=== PATIENT | male | born 1955 | race African-American/Black ===

== ENCOUNTER 2019-04-02 08:41 | Inpatient (IN) | payer BC, OTHER ==
[~2019-04-02] VITALS: Ht 175.3 cm; Wt 95.1 kg
[2019-04-02] VITALS (12 sets, daily range): BP systolic 119–167; BP diastolic 64–86
[~2019-04-02 08:41] MED LIST: ASPI-1393 PO; CRES10 PO; LISI10TA5 PO; METO1TAB26 PO; PRAV80TA21 PO
[2019-04-02] MEDS ORDERED: METO100T16 PO (09:10)
[2019-04-02] MEDS ORDERED: AMLO10TA4 MT (09:10)
[2019-04-02] MEDS ORDERED: IODIXANOL 320MG/ML 100 ML BOTTLE IV ONE ×2 (09:56→10:47)
[2019-04-02] MEDS ORDERED: LIDOCAINE HCL 1% 20ML VIAL (Pyxis) INJ ONE (09:56)
[2019-04-02] MEDS ORDERED: FENTANYL CITRATE/PF 50MCG/ML 2ML VIAL ONE (10:09)
[2019-04-02] MEDS ORDERED: MIDAZOLAM HCL 2 MG/2 ML VIAL ONE (10:09)
[2019-04-02] MEDS ORDERED: IOHEXOL-300 100 ML BOTTLE ONE (10:45)
[2019-04-02] MEDS ORDERED: CLOPIDOGREL 75MG TABLET ONE (11:40)
[2019-04-02] MEDS ORDERED: ASPIRIN 325MG EC TABLET PO ONE (11:41)
[2019-04-02] MEDS ORDERED: ONDANSETRON HCL 4MG/2ML INJ IV PRN (12:00)
[2019-04-02] MEDS ORDERED: ACETAMINOPHEN 325MG TABLET PO PRN (12:00)
[2019-04-02] MEDS ORDERED: ATROPINE SULFATE 1MG/10ML SYR IV PRN (12:00)
[2019-04-02] MEDS ORDERED: NICARDIPINE 100MCG/ML 10ML VIAL (CATH LAB) IV ONE (13:58)
[2019-04-02] MEDS ORDERED: HEPARIN SODIUM 1,000 UNIT/1ML VIAL IV ONE (13:58)
[2019-04-02] MEDS ORDERED: NITROGLYCERIN 50MCG/ML 10ML VIAL (CATH LAB) IV ONE (13:58)
[2019-04-02] MEDS ORDERED: ZOLPIDEM TARTRATE 5MG TABLET PO PRN (21:00)
[2019-04-03] VITALS: BP 124/66
[2019-04-03 02:00] VITALS: BP 111/70
[2019-04-03 04:00] VITALS: BP 123/67
[2019-04-03 06:00] VITALS: BP 149/71
[2019-04-03 07:53] LABS: BASOPHILS % 0.8 % (0.0-2.0); EOSINOPHILS % 7.6 % (0.0-5.0); HEMATOCRIT. 38.3 % (42.0-52.0); HEMOGLOBIN. 13.2 g/dL (14.0-18.0); LYMPHOCYTES % 28.5 % (20.0-50.0); MEAN CORPUSCULAR HEMOGLOBIN 30.5 pg (28.0-32.0); MEAN CORPUSCULAR VOLUME 88.7 fL (80.0-94.0); MEAN PLATELET VOLUME 8.6 fl (7.4-10.4); NEUTROPHILS % 55.1 % (40.0-76.0); PLATELET 219 x1000/uL (130-400); RED BLOOD CELL COUNT 4.32 mill/uL (4.7-6.1); RED CELL DISTRIBUTION WIDTH 13.3 % (11.6-14.6)
[2019-04-03 08:00] VITALS: BP 161/84
[2019-04-03 08:33] VITALS: BP 161/83
[2019-04-03 08:58] LABS: CHLORIDE 106 mEq/L (98-107)
[2019-04-03] MEDS ORDERED: CLOPIDOGREL 75MG TABLET PO SCH (09:00)
[2019-04-03] MEDS ORDERED: ASPIRIN 325MG TABLET PO SCH (09:00)
== END 2019-04-03 08:00 | disposition home or self-care (01) | DRG 247 ==
LOC: CCL 08:41 → 3WST 08:42
PROVIDERS: ADMIT Specialist; ATTEND Specialist
PROC: 4A023N7 Measurement of Cardiac Sampling and Pressure, Left Heart, Percutaneous Approach (ICD-10-PCS; principal; 2019-04-03)
PROC: 027035Z Dilation of Coronary Artery, One Artery with Two Drug-eluting Intraluminal Devices, Percutaneous Approach (ICD-10-PCS; 2019-04-03)
PROC: B2111ZZ Fluoroscopy of Multiple Coronary Arteries using Low Osmolar Contrast (ICD-10-PCS; 2019-04-03)
PROC: B2151ZZ Fluoroscopy of Left Heart using Low Osmolar Contrast (ICD-10-PCS; 2019-04-03)
DX: I25.110 Atherosclerotic heart disease of native coronary artery with unstable angina pectoris (principal); E78.5 Hyperlipidemia, unspecified; I10 Essential (primary) hypertension; N40.0 Benign prostatic hyperplasia without lower urinary tract symptoms; I73.9 Peripheral vascular disease, unspecified; N28.9 Disorder of kidney and ureter, unspecified; Z79.82 Long term (current) use of aspirin; Z95.5 Presence of coronary angioplasty implant and graft; Z79.02 Long term (current) use of antithrombotics/antiplatelets
CPT/HCPCS: 36415; 80048; 85347; 92928; 92978; 93005; 93458; 93571; C1725; C1753; C1769; C1874; C1887; C1893; J1644; J2250; J3010; J3490; Q9967

== ENCOUNTER 2019-07-02 06:39 | Day surgery (SDC) | payer OTHER ==
[~2019-07-02] VITALS: Ht 175.3 cm; Wt 83.9 kg
[~2019-07-02 06:39] MED LIST changes: +AMLO10TA4 MT; -CRES10 PO; +METO100T16 PO; -METO1TAB26 PO
[2019-07-02] MEDS ORDERED: IODIXANOL 320MG/ML 100 ML BOTTLE IV ONE (07:31)
[2019-07-02] MEDS ORDERED: EVOL140P SQ (08:45)
[2019-07-02] MEDS ORDERED: ASPI-986 MT (08:45)
[2019-07-02] MEDS ORDERED: METF-414 MT (08:45)
[2019-07-02] MEDS ORDERED: CLOP75TA4 MT (08:45)
[2019-07-02] MEDS ORDERED: MIDAZOLAM HCL 2 MG/2 ML VIAL ONE (08:52)
[2019-07-02] MEDS ORDERED: FENTANYL CITRATE/PF 50MCG/ML 2ML VIAL ONE (08:53)
[2019-07-02] MEDS ORDERED: LIDOCAINE HCL 1% 20ML VIAL (Pyxis) INJ ONE (08:53)
[2019-07-02] MEDS ORDERED: IOHEXOL-300 100 ML BOTTLE ONE (08:57)
[2019-07-02] MEDS ORDERED: HEPARIN SODIUM 1,000 UNIT/1ML VIAL IV ONE (09:12)
[2019-07-02] MEDS ORDERED: NITROGLYCERIN 50MCG/ML 10ML VIAL (CATH LAB) IV ONE (09:12)
[2019-07-02] MEDS ORDERED: ACETAMINOPHEN 325MG TABLET PO PRN (16:00)
[2019-07-02] MEDS ORDERED: ACETAMINOPHEN 325MG TABLET ONE (16:00)
== END 2019-07-02 16:15 | disposition home or self-care (01) ==
LOC: CCL 06:39
PROVIDERS: ATTEND Specialist
DX: I70.211 Atherosclerosis of native arteries of extremities with intermittent claudication, right leg (principal); E78.5 Hyperlipidemia, unspecified; I10 Essential (primary) hypertension; I25.10 Atherosclerotic heart disease of native coronary artery without angina pectoris; N40.0 Benign prostatic hyperplasia without lower urinary tract symptoms; Z79.02 Long term (current) use of antithrombotics/antiplatelets; Z79.82 Long term (current) use of aspirin; Z79.899 Other long term (current) drug therapy; Z88.8 Allergy status to other drugs, medicaments and biological substances; Z95.5 Presence of coronary angioplasty implant and graft
CPT/HCPCS: 37228; 75710; 82962; 85347; 99152; 99153; C1725; C1760; C1769; C1887; C1893; C1894; J1644; J2250; J3010; J3490; Q9967; G0500

== ENCOUNTER 2021-09-02 09:12 | Emergency (ER) | payer MEDICARE, OTHER ==
[~2021-09-02] VITALS: Ht 175.3 cm; Wt 75.0 kg
[~2021-09-02 09:12] MED LIST changes: -ASPI-1393 PO; +ASPI-986 MT; +CLOP-31 MT; +EVOL140P3 SQ; +LISI10TA26 PO; -LISI10TA5 PO; +METF-414 MT
[2021-09-02] MEDS ORDERED: ONDANSETRON HCL 4MG/2ML INJ IV STA (09:21)
[2021-09-02] MEDS ORDERED: SODIUM CHLORIDE 0.9% 1,000 ML IV ONE (09:30)
[2021-09-02 09:34] LABS: BASOPHILS % 0.9 % (0.0-2.0); EOSINOPHILS % 7.2 % (0.0-5.0); HEMATOCRIT. 36.1 % (42.0-52.0); HEMOGLOBIN. 11.9 g/dL (14.0-18.0); LYMPHOCYTES % 33.5 % (20.0-50.0); MEAN CORPUSCULAR HEMOGLOBIN 29.4 pg (28.0-32.0); MONOCYTES % 11.3 % (2.0-8.0); NEUTROPHILS % 47.1 % (40.0-76.0); PLATELET 260 x1000/uL (130-400); RED BLOOD CELL COUNT 4.06 mill/uL (4.7-6.1); RED CELL DISTRIBUTION WIDTH 13.5 % (11.6-14.6)
[2021-09-02 09:39] LABS: PROTHROMBIN TIME 10.3 sec (9.6-11.0)
[2021-09-02 09:40] LABS: CHLORIDE 107 mEq/L (98-107)
[2021-09-02 10:30] VITALS: BP 133/70
[2021-09-14] MEDS ORDERED: ASPI-1406 MT (13:25)
== END 2021-09-02 10:46 | disposition home or self-care (01) ==
LOC: ER 09:12
DX: R55 Syncope and collapse (principal); N17.9 Acute kidney failure, unspecified; I25.10 Atherosclerotic heart disease of native coronary artery without angina pectoris; E11.9 Type 2 diabetes mellitus without complications; I10 Essential (primary) hypertension; Z79.82 Long term (current) use of aspirin
CPT/HCPCS: 36415; 80053; 83880; 84484; 85025; 85610; 93005; 96374; 99283; J2405; J7030

== ENCOUNTER → 2021-09-14 | Day surgery (SDC) | payer MEDICARE, OTHER ==
[~2021-09-14] VITALS: Ht 175.3 cm; Wt 83.0 kg
[~2021-09-14] MED LIST changes: +ASPI-1406 MT; +ATROPINE SULFATE 1MG/10ML SYR IV PRN; +FENTANYL CITRATE/PF 50MCG/ML 2ML VIAL ONE; +HEPARIN 1000 UNITS/ML 10ML ONE; +IODIXANOL 320MG/ML 100 ML BOTTLE IV ONE; +LIDOCAINE HCL 1% 10 MG/ML 10ML VIAL ONE; +MIDAZOLAM HCL 2 MG/2 ML VIAL ONE; +NICARDIPINE 100MCG/ML 10ML VIAL (CATH LAB) IV ONE; +NITROGLYCERIN 50MCG/ML 10ML VIAL (CATH LAB) IV ONE; +ONDANSETRON HCL 4MG/2ML INJ IV PRN
== END | disposition home or self-care (01) ==
LOC: CCL 12:16
PROVIDERS: ATTEND Specialist
DX: I25.10 Atherosclerotic heart disease of native coronary artery without angina pectoris (principal); I35.0 Nonrheumatic aortic (valve) stenosis; I10 Essential (primary) hypertension; E11.9 Type 2 diabetes mellitus without complications; E78.00 Pure hypercholesterolemia, unspecified; N40.0 Benign prostatic hyperplasia without lower urinary tract symptoms; I25.2 Old myocardial infarction; Z79.82 Long term (current) use of aspirin; Z79.84 Long term (current) use of oral hypoglycemic drugs; Z79.899 Other long term (current) drug therapy; Z95.5 Presence of coronary angioplasty implant and graft; Z98.890 Other specified postprocedural states; Z86.16 Personal history of COVID-19; Z88.8 Allergy status to other drugs, medicaments and biological substances; Z82.49 Family history of ischemic heart disease and other diseases of the circulatory system
CPT/HCPCS: 93005; 93454; 99152; C1769; C1893; J1644; J2250; J3010; J3490; Q9967; G0500

== ENCOUNTER → 2022-02-28 | Day surgery (SDC) | payer MEDICARE ==
[~2022-02-28] VITALS: Ht 175.3 cm; Wt 83.9 kg
[~2022-02-28] MED LIST changes: +ACETAMINOPHEN 325MG TABLET PO PRN; -ATROPINE SULFATE 1MG/10ML SYR IV PRN; -HEPARIN 1000 UNITS/ML 10ML ONE; +IOHEXOL-300 100 ML BOTTLE ONE; -LIDOCAINE HCL 1% 10 MG/ML 10ML VIAL ONE; +LIDOCAINE HCL 1% 20ML VIAL (Pyxis) INJ ONE; -LISI10TA26 PO; +LISI20TA31 MT; -METF-414 MT; -NICARDIPINE 100MCG/ML 10ML VIAL (CATH LAB) IV ONE; -NITROGLYCERIN 50MCG/ML 10ML VIAL (CATH LAB) IV ONE; +TAMS-11 MT
== END | disposition home or self-care (01) ==
LOC: CCL 07:11
PROVIDERS: ATTEND Specialist
DX: I73.9 Peripheral vascular disease, unspecified (principal); I25.10 Atherosclerotic heart disease of native coronary artery without angina pectoris; E11.22 Type 2 diabetes mellitus with diabetic chronic kidney disease; E11.51 Type 2 diabetes mellitus with diabetic peripheral angiopathy without gangrene; N18.9 Chronic kidney disease, unspecified; N40.0 Benign prostatic hyperplasia without lower urinary tract symptoms; E78.5 Hyperlipidemia, unspecified; Z79.82 Long term (current) use of aspirin; Z79.84 Long term (current) use of oral hypoglycemic drugs; Z79.899 Other long term (current) drug therapy; Z98.890 Other specified postprocedural states; Z95.5 Presence of coronary angioplasty implant and graft; Z88.8 Allergy status to other drugs, medicaments and biological substances; Z20.822 Contact with and (suspected) exposure to COVID-19
CPT/HCPCS: 36246; 75710; 82962; 87426; C1760; C1769; C1887; C1893; J1644; J2250; J3010; J3490; Q9967

== ENCOUNTER 2025-10-01 06:23 | Inpatient (IN) | payer MEDICARE, OTHER ==
[~2025-10-01] VITALS: Ht 175.3 cm; Wt 88.9 kg
[~2025-10-01 06:23] MED LIST changes: -ACETAMINOPHEN 325MG TABLET PO PRN; -AMLO10TA4 MT; -ASPI-1406 MT; +ASPI-1497 PO; -ASPI-986 MT; -FENTANYL CITRATE/PF 50MCG/ML 2ML VIAL ONE; +FINE10TA PO; -IODIXANOL 320MG/ML 100 ML BOTTLE IV ONE; -IOHEXOL-300 100 ML BOTTLE ONE; -LIDOCAINE HCL 1% 20ML VIAL (Pyxis) INJ ONE; -LISI20TA31 MT; -MIDAZOLAM HCL 2 MG/2 ML VIAL ONE; -ONDANSETRON HCL 4MG/2ML INJ IV PRN; -PRAV80TA21 PO; -TAMS-11 MT
[2025-10-01] MEDS ORDERED: HEPARIN 1000 UNITS/ML 10ML ONE (07:31)
[2025-10-01] MEDS ORDERED: LIDOCAINE HCL 1% 20ML VIAL ONE (07:31)
[2025-10-01] MEDS ORDERED: IODIXANOL 320MG/ML 100 ML BOTTLE IV ONE (07:31)
[2025-10-01] MEDS ORDERED: MIDAZOLAM HCL 2 MG/2 ML VIAL ONE (08:52)
[2025-10-01] MEDS ORDERED: ATROPINE SULFATE 1MG/10ML SYR ONE (08:52)
[2025-10-01] MEDS ORDERED: FENTANYL CITRATE/PF 50MCG/ML 2ML VIAL ONE (08:52)
[2025-10-01] MEDS ORDERED: ASPIRIN 325MG TABLET ONE (09:48)
[2025-10-01] MEDS ORDERED: CLOPIDOGREL 75MG TABLET ONE (09:48)
[2025-10-01] MEDS ORDERED: ACETAMINOPHEN 325MG TABLET PO PRN (10:15)
[2025-10-01] MEDS ORDERED: ATROPINE SULFATE 1MG/10ML SYR IV PRN (10:15)
[2025-10-01] MEDS ORDERED: ONDANSETRON HCL 4MG/2ML INJ IV PRN (10:15)
[2025-10-01 10:18] VITALS: BP 124/74; PULSE 75; RESP 16; TEMP 36.4; O2SAT 97
[2025-10-01 10:41] VITALS: BP 124/74; PULSE 75; RESP 16; TEMP 36.4736
[2025-10-01 12:00] VITALS: BP 139/74; PULSE 69; RESP 18; TEMP 36.3; O2SAT 98
[2025-10-01 16:00] VITALS: BP 103/65; PULSE 78; RESP 20; TEMP 36.5; O2SAT 100
[2025-10-01 20:00] VITALS: BP 130/79; PULSE 82; RESP 19; TEMP 37; O2SAT 99
[2025-10-02 00:30] VITALS: BP 135/55; PULSE 91; RESP 17; TEMP 36.3; O2SAT 96
[2025-10-02 04:16] VITALS: BP 135/72; PULSE 88; RESP 22; TEMP 37; O2SAT 99
[2025-10-02] MEDS ORDERED: METO100T9 PO (05:42)
[2025-10-02 07:30] LABS: BASOPHILS % 0.7 % (0.0-2.0); EOSINOPHILS % 14.1 % (0.0-5.0); HEMATOCRIT. 34.6 % (42.0-52.0); HEMOGLOBIN. 11.5 g/dL (14.0-18.0); LYMPHOCYTES % 27.2 % (20.0-50.0); MEAN PLATELET VOLUME 9.0 fl (7.4-10.4); MONOCYTES % 10.4 % (2.0-8.0); NEUTROPHILS % 47.6 % (40.0-76.0); PLATELET 185 x1000/uL (130-400); RED BLOOD CELL COUNT 3.95 mill/uL (4.7-6.1); RED CELL DISTRIBUTION WIDTH 14.3 % (11.6-14.6)
[2025-10-02 08:00] VITALS: BP 134/65; PULSE 80; RESP 14; TEMP 36.6; O2SAT 98
[2025-10-02 08:04] LABS: CREATININE 1.5 mg/dL (0.6-1.3); UREA NITROGEN BLOOD 15.0 mg/dL (9-23)
[2025-10-02] MEDS: CLOPIDOGREL 75MG TABLET PO SCH (08:47)
[2025-10-02] MEDS: ASPIRIN 325MG TABLET PO SCH (08:47)
[2025-10-02] MEDS: METOPROLOL SUCCINATE 50MG ER TABLET PO SCH (08:47)
[2025-10-02] MEDS ORDERED: ASPIRIN 81MG EC TABLET PO SCH (09:00)
[2025-10-02] MEDS ORDERED: CLOPIDOGREL 75MG TABLET PO SCH (09:00)
[2025-10-02 09:18] VITALS: BP 145/77; PULSE 77; RESP 14; TEMP 97.9
== END 2025-10-02 09:40 | disposition home or self-care (01) | DRG 254 ==
LOC: CCL 06:23 → 3WST 10:14
PROVIDERS: ADMIT Specialist; ATTEND Specialist
PROC: 047L3Z1 Dilation of Left Femoral Artery using Drug-Coated Balloon, Percutaneous Approach (ICD-10-PCS; principal; 2025-10-01)
PROC: B41G1ZZ Fluoroscopy of Left Lower Extremity Arteries using Low Osmolar Contrast (ICD-10-PCS; 2025-10-01)
DX: I70.212 Atherosclerosis of native arteries of extremities with intermittent claudication, left leg (principal); E78.5 Hyperlipidemia, unspecified; Z79.02 Long term (current) use of antithrombotics/antiplatelets; I12.9 Hypertensive chronic kidney disease with stage 1 through stage 4 chronic kidney disease, or unspecified chronic kidney disease; N18.9 Chronic kidney disease, unspecified; I35.0 Nonrheumatic aortic (valve) stenosis; I44.0 Atrioventricular block, first degree; I25.10 Atherosclerotic heart disease of native coronary artery without angina pectoris; M17.11 Unilateral primary osteoarthritis, right knee; I25.2 Old myocardial infarction; Z95.2 Presence of prosthetic heart valve; Z79.82 Long term (current) use of aspirin; Z88.8 Allergy status to other drugs, medicaments and biological substances; Z95.5 Presence of coronary angioplasty implant and graft
CPT/HCPCS: 36415; 37224; 75710; 80048; 82962; 85025; 85347; A4606; C1725; C1769; C1893; C1894; J0461; J1644; J2003; J2250; J3010; Q9967; C2623